=== PATIENT | female | born 1995 | race African-American/Black ===

== ENCOUNTER 2017-01-12 18:57 | Emergency (ER) | payer SELFPAY ==
[~2017-01-12] VITALS: Ht 162.6 cm; Wt 132.0 kg
[2017-01-12 19:20] VITALS: BP 154/118
[2017-01-12] MEDS ORDERED: BACTRIM,SEPT1 TABLET PO (20:41)
== END 2017-01-12 21:05 | disposition home or self-care (01) ==
LOC: EME 18:57
DX: L02.415 Cutaneous abscess of right lower limb (principal); F17.200 Nicotine dependence, unspecified, uncomplicated
CPT/HCPCS: 99281; 99284

== ENCOUNTER 2017-07-26 09:12 | Emergency (ER) | payer SELFPAY ==
[~2017-07-26] VITALS: Ht 163.8 cm; Wt 139.2 kg
[~2017-07-26 09:12] MED LIST: BACTRIM,SEPT1 TABLET PO
[2017-07-26 10:23] LABS: BASOPHIL COUNT 0.1 K/uL (0-0.1); EOSINOPHIL (%) 0.9 % (0-5); EOSINOPHIL COUNT 0.1 K/uL (0-0.3); HEMATOCRIT 33.5 % (36.0-46.0); IMMATURE GRANULOCYTE COUNT 0.1 K/uL; INSTRUMENT ABS NEUTROPHIL CT 9.7 K/uL; LYMPHOCYTE COUNT 1.5 K/uL (1.0-2.8); MCH 28.8 PG (29.0-34.0); MCHC 32.2 G/DL (30.0-36.0); MCV 89.3 FL (83-99); MEAN PLAT.VOLUME 10.2 uM^3 (9.5-12.4); MONOCYTE (%) 4.1 % (3-12); MONOCYTE COUNT 0.5 K/uL (0-0.8); NEUTROPHIL (%) 80.9 % (45-76); NEUTROPHIL COUNT 9.7 K/uL (1.8-6.4); PLATELET COUNT 335 K/uL (156-360); RBC DIS.WIDTH-SD 45.8 % (39-53); RED BLOOD COUNT 3.75 M/uL (3.80-5.20)
[2017-07-26 10:33] LABS: CHLORIDE 109 mEq/L (99-109); POTASSIUM 3.5 mEq/L (3.7-5.4); SODIUM 143 mEq/L (136-147)
[2017-07-26 10:35] LABS: GLUCOSE 137 mg/dL (70-99)
[2017-07-26 10:37] LABS: ANION GAP 7 MEQ/L (2-14); TOTAL BILIRUBIN 0.2 mg/dL (0.0-1.0)
[2017-07-26 10:39] LABS: ALKALINE PHOSPHATASE 77 IU/L (3-129); GFR ESTIMATE (CALCULATED) > 59 mL/min/
[2017-07-26 10:40] LABS: UREA NITROGEN (BUN) 7 mg/dL (9-23)
[2017-07-26 10:42] LABS: LIPASE 11 U/L (1.0-51.0)
[2017-07-26 10:48] LABS: QUANTITATIVE HCG < 4.0 MIU/ML
[2017-07-26 14:50] LABS: TROP-I INTERPRETATION NEGATIVE; TROPONIN-I < 0.01 ng/mL (0.0-0.30)
[2017-07-26] MEDS ORDERED: IMODIUM A-D2 M2 PO (16:20)
[2017-07-26] MEDS ORDERED: BENTYL20 MG PO (16:20)
[2017-07-26] MEDS ORDERED: ZOFRAN4 MG PO (16:20)
[2017-07-26 16:37] VITALS: BP 129/69
== END 2017-07-26 16:37 | disposition left against medical advice (07) ==
LOC: EME → EDBD 09:12 → EME 09:12
PROVIDERS: Emergency Medicine
DX: R10.9 Unspecified abdominal pain (principal); R11.2 Nausea with vomiting, unspecified; R19.7 Diarrhea, unspecified; R07.89 Other chest pain; Z53.20 Procedure and treatment not carried out because of patient's decision for unspecified reasons; F17.200 Nicotine dependence, unspecified, uncomplicated
CPT/HCPCS: 71010; 80053; 83690; 84484; 84702; 85025; 85379; 87493; 93005; 99281; 99285; J0780; J1885; J2270; J2405; J2765; J7030